=== PATIENT | female | born 1985 | race Native Hawaiian/Other Pacific Islander ===

== ENCOUNTER 2017-11-23 07:09 | Emergency (ER) | payer OTHER ==
[2017-11-23 07:19] VITALS: BMI 28.3
[2017-11-23 07:24] VITALS: RESP 18; O2SAT 100
[2017-11-23] MEDS ORDERED: Sodium Chloride 0.9% 1,000 ML IV ONE (08:12)
[2017-11-23] MEDS ORDERED: Sodium Chloride 0.9% 1,000 ML ONE (08:46)
--- NOTE | 2017-11-23 08:55 | C.PDOC ---
History Of Present Illness 31-year-old female, presents to the emergency department with complaints of 3 episodes of non-bloody/non-bilious vomiting x3 days associated with mild epigastric cramping and mid back pain. Pain worsens after she eats. States she was seen at an urgent care, where she was given a shot with relief. Patient denies any diarrhea, fever, chills, or any other associated symptoms. No other complaints at this time. Time Seen by Provider: 11/23/17 07:27 Chief Complaint (Nursing): Abdominal Pain History Per: Patient History/Exam Limitations: no limitations Current Symptoms Are (Timing): Still Present Severity: Moderate Past Medical History Reviewed: Historical Data, Nursing Documentation, Vital Signs Vital Signs: Last Vital Signs Temp 97.5 F L 11/23/17 07:19 Pulse 81 11/23/17 07:19 Resp 18 11/23/17 07:19 BP 129/82 11/23/17 07:19 Pulse Ox 100 11/23/17 07:19 Family History: States: No Known Family Hx - Social History Hx Alcohol Use: No Hx Substance Use: No - Immunization History Hx Tetanus Toxoid Vaccination: No Hx Influenza Vaccination: No Hx Pneumococcal Vaccination: No Review Of Systems Constitutional: Negative for: Fever Cardiovascular: Negative for: Chest Pain Respiratory: Negative for: Shortness of Breath Gastrointestinal: Positive for: Nausea, Vomiting, Abdominal Pain. Negative for: Diarrhea Musculoskeletal: Positive for: Back Pain. Negative for: Neck Pain Skin: Negative for: Rash Neurological: Negative for: Weakness, Numbness Physical Exam - Physical Exam Appears: Non-toxic, No Acute Distress Skin: Warm, Dry, No Rash Head: Atraumatic, Normacephalic Eye(s): bilateral: Normal Inspection Nose: Normal Oral Mucosa: Moist Lips: Normal Appearing Neck: Normal ROM Cardiovascular: Rhythm Regular, No Murmur Respiratory: Normal Breath Sounds, No Accessory Muscle Use Gastrointestinal/Abdominal: Soft, No Tenderness, No Guarding, No Rebound Extremity: Normal ROM, No Deformity Neurological/Psych: Oriented x3, Normal Speech ED Course And Treatment - Laboratory Results Result Diagrams: 11/23/17 09:33 11/23/17 09:33 O2 Sat by Pulse Oximetry: 100 Pulse Ox Interpretation: Normal (RA) Medical Decision Making Medical Decision Making: Plan: * Bloodwok * IVF, Pepcid, Zofran * HCG/UA * Reassess and Disposition On re-exam, the patient reports improvement of symptoms. Lungs are CTA, heart is RRR, abdomen is soft, non-tender and tolerating PO well. Ambulatory in the ED with steady gait. Follow up with the medical doctor within 1-2 days. Return if worsened. Disposition - Disposition Referrals: Ranjit Rizo MD [Staff Provider] - Ainsley Laird MD [Staff Provider] - Disposition: HOME/ ROUTINE Disposition Time: 12:26 Condition: STABLE Additional Instructions: Follow up with the medical doctor within 1-2 days. Return if worsened. Prescriptions: Famotidine [Pepcid] 20 mg PO BID #20 tab Naproxen [Naprosyn] 500 mg PO BID #20 tab Instructions: Gallstones (DC) Forms: [facility] (Danish) - Clinical Impression Clinical Impression: Cholelithiasis - Scribe Statement The provider has reviewed the documentation as recorded by the Scribe (Adriana Samuel) All medical record entries made by the Scribe were at my direction and personally dictated by me. I have reviewed the chart and agree that the record accurately reflects my personal performance of the history, physical exam, medical decision making, and the department course for this patient. I have also personally directed, reviewed, and agree with the discharge instructions and disposition.
[2017-11-23 09:41] LABS: BASO % 0.3 % (0.0-2.0); EOS # 0.1 K/uL (0.0-0.7); EOS % 0.9 % (0.0-4.0); HEMOGLOBIN 12.6 g/dL (11.0-16.0); LYMPH # 1.1 K/uL (1.0-4.3); LYMPH % 13.6 % (20.0-40.0); MEAN CELL VOLUME 90.3 fL (81.0-99.0); MEAN CORPUSCULAR HEMOGLOBIN 31.3 pg (27.0-31.0); MEAN CORPUSCULAR HGB CONC 34.6 g/dL (33.0-37.0); MEAN PLATELET VOLUME 9.1 fL (7.2-11.7); MONO # 0.5 K/uL (0.0-0.8); NEUT # 6.1 K/uL (1.8-7.0); NEUT % 78.2 % (50.0-75.0); NRBC % 0.1 % (0.0-2.0); RBC 4.02 Mil/uL (3.80-5.20); RED CELL DISTRIBUTION WIDTH 13.1 % (11.5-14.5); WHITE BLOOD COUNT 7.8 K/uL (4.8-10.8)
[2017-11-23 09:58] LABS: ALB/GLOB RATIO 1.2 (1.0-2.1); ALBUMIN 4.1 g/dL (3.5-5.0); ALT/SGPT 19 U/L (9-52); AST/SGOT 16 U/L (14-36); BLOOD UREA NITROGEN 9 mg/dL (7-17); CALCIUM 9.5 mg/dl (8.6-10.4); GFR NON-AFRICAN AMERICAN > 60; LIPASE 63 U/L (23-300)
[2017-11-23 10:00] LABS: HCG,QUALITATIVE URINE NEGATIVE (NEGATIVE)
[2017-11-23 10:04] LABS: SQUAMOUS EPITHIAL 7 /hpf (0-5); URINE BACTERIA OCC (<OCC); URINE BILIRUBIN NEGATIVE (NEGATIVE); URINE BLOOD 2+ (NEGATIVE); URINE CLARITY Clear (Clear); URINE COLOR Yellow (YELLOW); URINE GLUCOSE (UA) NORMAL (Normal); URINE LEUKOCYTE ESTERASE NEG Leu/uL (Negative); URINE PROTEIN 1+ mg/dL (NEGATIVE); URINE UROBILINOGEN NORMAL mg/dL (0.2-1.0)
[2017-11-23 11:00] VITALS: TEMP 98.2
--- NOTE | 2017-11-23 11:37 | US ---
Date of service: 11/23/2017 HISTORY: RUQ abd pain, vomiting COMPARISON: None. TECHNIQUE: Grayscale imaging was performed. FINDINGS: LIVER: Measures 14.0 cm in length. There is diffuse increased echogenicity of the liver parenchyma. No mass. No intrahepatic bile duct dilatation. GALLBLADDER: There is a 1.7 cm stone in the region of the neck of the gallbladder. There are comet tail reverberation artifacts in the anterior gallbladder wall and mild diffuse gallbladder wall thickening. The sonographic Porter's sign is negative. COMMON BILE DUCT: Measures 3.8 mm. No stones. No dilatation. PANCREAS: Unremarkable as visualized. No mass. No ductal dilatation. RIGHT KIDNEY: Measures 9.7 cm in length. Normal echogenicity. No calculus, mass, or hydronephrosis. There is a 2.1 x 2.3 x 1.9 cm cyst in the lower pole. AORTA: No aneurysmal dilatation. IVC: Unremarkable. OTHER FINDINGS: None . IMPRESSION: Cholelithiasis. Adenomyomatosis of the gallbladder. Diffuse increased echogenicity in the liver may reflect hepatic steatosis however parenchymal infectious/ inflammatory etiologies cannot be entirely excluded. Clinical and laboratory correlation is advised.
[2017-11-23 12:41] VITALS: BP 124/82; PULSE 70
--- NOTE | 2017-11-23 13:57 | RAD ---
Date of service: 11/23/2017 PROCEDURE: Radiographs of the chest and abdomen (obstructive series) HISTORY: abd pain, vomiting COMPARISON: No prior. TECHNIQUE: AP radiograph of the chest, with upright and supine radiographs of the abdomen. FINDINGS: CHEST: Lungs: The lungs are well inflated and clear. Cardiovascular: Normal size heart. No pulmonary vascular congestion. Pleura: No pleural fluid. No pneumothorax. Other findings: None. ABDOMEN AND PELVIS: Bowel: There is moderate amount of stool in the ascending colon. There are small air-fluid levels in the mid abdomen. No evidence of mechanical obstruction. Free air: None. Bones: Unremarkable. Other findings: None. IMPRESSION: Small air-fluid levels in the mid abdomen, nonspecific and could be related to diarrhea or gastroenteritis. Nonobstructive bowel-gas pattern. Clear lungs.
== END 2017-11-23 12:42 | disposition home or self-care (01) ==
LOC: C.ER 07:09
DX: K80.20 Calculus of gallbladder without cholecystitis without obstruction (principal)
CPT/HCPCS: 74022; 76705; 80053; 81001; 83690; 84703; 85025; 96361; 96374; 96375; 99284; J1885; J2405; J7030